=== PATIENT | female | born 1980 | race Caucasian/White ===

== ENCOUNTER 2017-03-03 01:37 | Emergency (ER) | payer BC ==
[2017-03-03] MEDS ORDERED: Lidocaine 1% with EPINEPHrine 1:100,000 20 ML MDV INJECT ONE (01:59)
[2017-03-03] MEDS ORDERED: Bacitracin Oint 1 GM U/D Packet TOP ONE (02:28)
--- NOTE | 2017-03-03 03:05 | EDM.PDOC ---
ED HPI GENERAL MEDICAL PROBLEM - General Chief Complaint: Laceration Stated Complaint: CUT ABOVE RIGHT EYE Time Seen by Provider: 03/03/17 01:44 Source of Information: Reports: Patient History Limitations: Reports: No Limitations - History of Present Illness INITIAL COMMENTS - FREE TEXT/NARRATIVE: HISTORY AND PHYSICAL: History of present illness: [36-year-old female that was drinking this evening tripped and hit her brow on the nightstand. 3.5 cm laceration. No loss of consciousness. Denies neck pain. No other injury or complaint] Review of systems: As per history of present illness and below otherwise all systems reviewed and negative. Past medical history: As per history of present illness and as reviewed below otherwise noncontributory. Surgical history: As per history of present illness and as reviewed below otherwise noncontributory. Social history: No reported history of drug or alcohol abuse. Family history: As per history of present illness and as reviewed below otherwise noncontributory. Physical exam: 3.5 cm laceration to brown no bony tenderness. Extraocular muscles intact. Nonfocal neurologic exam with normal cranial nerves. Her C- spine with normal painless range of motion HEENT: Atraumatic, normocephalic, pupils reactive, negative for conjunctival pallor or scleral icterus, mucous membranes moist, throat clear, neck supple, nontender, trachea midline. Lungs: Clear to auscultation, breath sounds equal bilaterally, chest nontender. Heart: S1S2, regular, negative for clicks, rubs, or JVD. Abdomen: Soft, nondistended, nontender. Negative for masses or hepatosplenomegaly. Negative for costovertebral tenderness. Pelvis: Stable nontender. Genitourinary: Deferred. Rectal: Deferred. Extremities: Atraumatic, negative for cords or calf pain. Neurovascular unremarkable. Neuro: Awake, alert, oriented. Cranial nerves II through XII unremarkable. Cerebellum unremarkable. Motor and sensory unremarkable throughout. Exam nonfocal. Diagnostics: [] Therapeutics: [Suture repair by JADA Meyers: [facility] anesthetized with 1% lidocaine. 8 interrupted 6-0 Prolene sutures placed with good approximation and hemostasis. Patient tolerated well no complications] Impression: [] Plan: [Patient status post minor head injury with brow laceration. No evidence of fracture or intracranial injury. Nonfocal neurologic exam. Suture repair performed. Patient tolerated well. Patient will follow up PCP 2 days for wound check and for suture removal Definitive disposition and diagnosis as appropriate pending reevaluation and review of above. Eye Pain Score (Numeric/FACES): 8 - Related Data Allergies Allergy/AdvReac Type Severity Reaction Status Date / Time morphine Allergy Itching Verified 03/03/17 01:55 Home Meds: Home Meds Escitalopram [Lexapro] 20 mg PO DAILY 03/03/17 [History] Past Medical History - Past Health History Medical/Surgical History: Denies Medical/Surgical History Psychiatric History: Reports: Anxiety, Depression - Infectious Disease History Infectious Disease History: Reports: Chicken Pox Social & Family History - Family History Family Medical History: Noncontributory - Tobacco Use Smoking Status *Q: Light Tobacco Smoker Years of Tobacco use: 3 Packs/Tins Daily: 0.1 Used Tobacco, but Quit: Yes Month Tobacco Last Used: August 2014 Second Hand Smoke Exposure: No - Caffeine Use Caffeine Use: Reports: None - Alcohol Use Days Per Week of Alcohol Use: 0 - Recreational Drug Use Recreational Drug Use: No ED ROS GENERAL - Review of Systems Review Of Systems: See Below (History of present illness) ED EXAM, SKIN/RASH Exam: See Below (History of present illness) Course - Vital Signs Last Recorded V/S: Last Vital Signs Temp 36.8 C 03/03/17 03:25 Pulse 107 H 03/03/17 03:25 Resp 17 03/03/17 03:25 BP 127/88 03/03/17 03:25 Pulse Ox 98 03/03/17 03:25 - Orders/Labs/Meds Meds: Medications Discontinued Medications Generic Name Dose Route Start Last Admin Trade Name Emanuel PRN Reason Stop Dose Admin Bacitracin 1 dose 03/03/17 02:28 03/03/17 02:33 Bacitracin Oint 1 Gm TOP 03/03/17 02:29 1 dose ONETIME ONE Administration Lidocaine/Epinephrine 20 ml 03/03/17 01:59 03/03/17 02:32 Xylocaine 1% With Epinephrine 1:100,000 INJECT 03/03/17 02:00 20 ml ONETIME ONE Administration Departure - Departure Time of Disposition: 02:57 Disposition: Home, Self-Care 01 Condition: Good Clinical Impression: Minor head injury, Mild concussion, Periorbital ecchymosis of right eye, Laceration of brow without complication - Discharge Information Instructions: Head Injury, Adult, [id number], Stitches, Halma, or Adhesive Wound Closure, [id number] Referrals: PCP,None [Primary Care Provider] - Forms: ED Department Discharge Additional Instructions: HISTORY AND PHYSICAL: History of present illness: [36-year-old female with no significant past history now came to the emergency department for evaluation of right brow laceration. Patient was drinking tonight and went home fell and hit her right brow on the bedside table. She states she was dazed. She had no prodromal symptoms. Denies neck pain. Tetanus is up-to-date. No other complaints.] Review of systems: As per history of present illness and below otherwise all systems reviewed and negative. Past medical history: As per history of present illness and as reviewed below otherwise noncontributory. Surgical history: As per history of present illness and as reviewed below otherwise noncontributory. Social history: No reported history of drug or alcohol abuse. Family history: As per history of present illness and as reviewed below otherwise noncontributory. Physical exam: HEENT: 3.5 cm laceration right brow through eyebrow. No bony tenderness. No gross contamination. Hemostatic. Normal painless extraocular muscle excursion with no asymmetry and no diplopia no camejo sign normal TMs bilateral nontender C-spine no step off or bony tenderness, normocephalic, pupils reactive, negative for conjunctival pallor or scleral icterus, mucous membranes moist, throat clear, neck supple, nontender, trachea midline. Lungs: Clear to auscultation, breath sounds equal bilaterally, chest nontender. Heart: S1S2, regular, negative for clicks, rubs, or JVD. Abdomen: Soft, nondistended, nontender. Negative for masses or hepatosplenomegaly. Negative for costovertebral tenderness. Pelvis: Stable nontender. Genitourinary: Deferred. Rectal: Deferred. Extremities: Atraumatic, negative for cords or calf pain. Neurovascular unremarkable. Neuro: Awake, alert, oriented. Cranial nerves II through XII unremarkable. Cerebellum unremarkable. Motor and sensory unremarkable throughout. Exam nonfocal. Diagnostics: [CT head and C-spine] Therapeutics: [Suture Suture repair by JADA Meyers after CT patient still has c-collar on. Laying in bed. Wound anesthetized with 1% Lido with epi with good effect. Wound irrigated extensively with normal saline high-pressure jet. 8 6-0 Prolene interrupted sutures placed. Patient tolerated well no complications. Good approximation and optimized cosmetic effect. Impression: Plan: []Minor head injury with mild concussion prodromal ecchymosis right brow lack. Lack repaired. Tetanus is up-to-date. CT head and C-spine pending. If unremarkable will clinically clear collar and anticipate outpatient follow-up. Patient and family agree with outpatient follow-up and strict return precautions will be given. Wound check in 2 days sutures out in 6 days Definitive disposition and diagnosis as appropriate pending reevaluation and review of above.
[2017-03-03 04:06] VITALS: BP 127/88
--- NOTE | 2017-03-03 11:56 | CT ---
EXAM DATE: 03/03/17 PATIENT'S AGE: 36 Patient: JAKE STEVENS Facility: [place], [place] Site . Site : 1980 Study: CT Head [id number]/12/2017 2:24:09 AM Ordering Physician: Omar Andre Final Report: INDICATION: Head injury TECHNIQUE: CT head without i.v. contrast. COMPARISON: None FINDINGS: CSF spaces: Within normal limits for age. Brain parenchyma: The brain parenchyma is normal in appearance with preservation of the riddle-white differentiation. No sign of mass, hemorrhage, or midline shift seen. Skull base and calvarium: The visualized paranasal sinuses are well aerated. The mastoid air cells are clear. The visualized orbits are grossly unremarkable. No skull fractures are seen. IMPRESSION: 1. No evidence of acute infarction, intracranial hemorrhage, or mass effect seen. Dictated by Charles Wylie MD @ 03/03/2017 3:11:51 AM Dictated by: Charles Wylie MD @ 03/03/2017 03:12:08 (Electronic Signature) Report Signed by Proxy. [facility]
--- NOTE | 2017-03-03 11:59 | CT ---
EXAM DATE: 03/03/17 PATIENT'S AGE: 36 Patient: JAKE STEVENS Facility: [place], [place] Site . Site : 1980 Study: CT Spine Cervical [id number]/12/2017 2:26:58 AM Ordering Physician: Omar Andre Final Report: INDICATION: Neck injury TECHNIQUE: CT cervical spine without i.v. contrast. Coronal and sagittal reformats were obtained. COMPARISON: None FINDINGS: Vertebral alignment: Alignment is normal. Vertebrae: No acute fractures or aggressive osseous lesions are identified. Discs and facet joints: Disc spaces are within normal limits. The facet joints are unremarkable in appearance. Extraspinal findings: The prevertebral soft tissues are unremarkable in appearance. The visualized lung apices and mediastinum are unremarkable. Calcified mediastinal lymph nodes are noted. IMPRESSION: 1. No acute cervical spine fracture or malalignment. Dictated by Charles Wylie MD @ 03/03/2017 3:16:02 AM Dictated by: Charles Wylie MD @ 03/03/2017 03:16:10 (Electronic Signature) Report Signed by Proxy. [facility]
== END 2017-03-03 03:25 | disposition home or self-care (01) ==
LOC: MW.ED 01:37
DX: S06.0X0A Concussion without loss of consciousness, initial encounter (principal); S01.111A Laceration without foreign body of right eyelid and periocular area, initial encounter; F17.210 Nicotine dependence, cigarettes, uncomplicated; Z88.5 Allergy status to narcotic agent; Z79.899 Other long term (current) drug therapy; W18.49XA Other slipping, tripping and stumbling without falling, initial encounter
CPT/HCPCS: 12013; 70450; 70450-26; 72125; 72125-26; 99284; 99284-25